=== PATIENT | male | born 1955 | race Caucasian/White ===

== ENCOUNTER → 2021-08-24 | Outpatient (CLI) | payer MEDICARE ==
--- NOTE | 2021-08-24 15:34 | Diagnostic Imaging Report ---
INDICATION: Ureter carcinoma. TECHNIQUE: Serum blood glucose level at the time of injection is 100 mg/dL. Patient was administered 14.7 mCi F-18 FDG intravenously in the left hand and PET imaging was performed from the top of the skull to midthighs. Noncontrast CT was also performed for attenuation correction and anatomic correlation. COMPARISON: No prior studies are available for comparison. FINDINGS: There is symmetric activity throughout the brain. Soft tissues of the neck are unremarkable. No mediastinal or hilar hypermetabolism is identified. No pulmonary parenchymal hypermetabolism is identified. There is physiologic activity throughout the GI and tracts. There are postop changes of right nephrectomy. No suspicious activity in the abdomen or pelvis is identified. No hypermetabolic lymphadenopathy is seen. IMPRESSION: Essentially unremarkable PET/CT study, as described. Dictated by: Dictated on workstation # [id number]
== END ==
LOC: RAD 12:00
PROVIDERS: ATTEND Internal Medicine Hematology & Oncology
DX: C66.9 Malignant neoplasm of unspecified ureter (principal)
CPT/HCPCS: 78815; A9552